=== PATIENT | female | born 1965 | race Caucasian/White ===

== ENCOUNTER 2021-06-07 13:30 | Emergency (ER) | payer OTHER ==
[~2021-06-07 13:30] MED LIST: CO Q-10400 MG PO; GABAPENTIN600 MG PO; MAGOX 400400 MG PO; MIRALAX17 GM PO; MOBIC15 MG PO; NAPROSYN EC 50500 MG PO; NORCO 5-325 TA1 EACH PO; PRELIEF PO; PYRIDIUM100 MG PO; RESTASIS1 EACH OP; VALIUM 5 MG TAB5 MG PO; VENTOLIN HFA 66.7 GM INH; VITAMIN C 500500 MG PO; VITAMIN D31000 UNI1 PO; VITAMIN E400 UNI2 PO; WELLBUTRIN SR150 M1 PO; [UNRECOGNIZED DRUG - OTHER] TD
[2021-06-07 15:02] LABS: HEMOGLOBIN 12.5 gm/dl (12.3-15.3); RED BLOOD COUNT 4.24 M/UL (4.00-5.10); WHITE BLOOD COUNT 5.5 K/UL (4.5-11.0)
[2021-06-07] MEDS ORDERED: VENTOLIN HFA 66.7 GM INH (16:07)
[2021-06-07] MEDS ORDERED: TESSALON PERLE100 MG PO (16:07)
[2021-06-07] MEDS ORDERED: ZITHROMAX500 MG PO (16:07)
== END 2021-06-07 17:20 | disposition home or self-care (01) ==
LOC: ER1 13:30
PROVIDERS: Preventive Medicine Occupational Medicine
DX: U07.1 COVID-19 (principal); Z88.5 Allergy status to narcotic agent; Z88.1 Allergy status to other antibiotic agents; Z23 Encounter for immunization
CPT/HCPCS: 71045; 80053; 85025; 94664; 99285; J7030; M0243

== ENCOUNTER 2021-11-20 13:39 | Emergency (ER) | payer OTHER ==
[~2021-11-20 13:39] MED LIST changes: +TESSALON PERLE100 MG PO; +ZITHROMAX500 MG PO
== END 2021-11-20 16:55 | disposition home or self-care (01) ==
LOC: ER1 13:39
DX: U07.1 COVID-19 (principal); Z88.1 Allergy status to other antibiotic agents; Z88.5 Allergy status to narcotic agent
CPT/HCPCS: 71045; 93005; 99283

== ENCOUNTER 2022-05-23 13:44 | Emergency (ER) | payer OTHER ==
[2022-05-23] MEDS ORDERED: ASPIRIN CHEWABL81 MG PO (17:28)
== END 2022-05-23 17:57 | disposition home or self-care (01) ==
LOC: ER1 13:44
DX: U07.1 COVID-19 (principal); M06.9 Rheumatoid arthritis, unspecified
CPT/HCPCS: 71045; 93005; 96374; 99284